=== PATIENT | female | born 1990 | race Caucasian/White ===

== ENCOUNTER 2017-01-23 21:09 | Emergency (ER) | payer MEDICAID ==
[2017-01-23 21:40] LABS: % IMMATURE GRANULYOCYTES 0.1 % (0.0-1.1); ABSOLUTE IMMATURE GRANULOCYTES 0.01 10^3/uL (0.00-0.10); ADD DIFF? NO; ADD MORPH? NO; ADD SCAN? NO; ATYPICAL LYMPHOCYTE FLAG 0 (0-99); FRAGMENT RBC FLAG 0 (0-99); HEMATOCRIT 42.9 % (38.0-47.0); HEMOGLOBIN 14.6 g/dL (12.6-16.3); LEFT SHIFT FLG 0 (0-99); LIPEMIA HEMOLYSIS FLAG 90 (0-99); MEAN CELL HEMOGLOBIN 31.4 pg (27.9-34.1); MEAN CELL VOLUME 92.3 fL (81.5-99.8); MEAN PLATELET VOLUME 9.4 fL (8.7-11.7); PLATELET CLUMPS FLAG 10 (0-99); PLATELET COUNT 335 10^3/uL (150-400); RED BLOOD CELL COUNT 4.65 10^6/uL (4.18-5.33)
[2017-01-23 21:49] LABS: ANION GAP 15 mEq/L (8-16); CALCIUM 9.9 mg/dL (8.5-10.4); CARBON DIOXIDE 18 mEq/l (22-31); CHLORIDE 109 mEq/L (97-110); CREATININE 0.9 mg/dL (0.6-1.0); ETHANOL SERUM 116 mg/dL (0-10); GLOMERULAR FILTRATION RATE > 60; GLUCOSE 84 mg/dL (70-100); POTASSIUM 3.9 mEq/L (3.5-5.2); SODIUM 142 mEq/L (134-144)
--- NOTE | 2017-01-23 21:52 | EDPHY ---
H & P Stated Complaint: SI, took "handfull" of tylenol. Source: Patient Exam Limitations: No limitations - Personal History Current Tetanus/Diphtheria Vaccine: Unsure Current Tetanus Diphtheria and Acellular Pertussis (TDAP): Unsure - Medical/Surgical History Hx Asthma: No Hx Chronic Respiratory Disease: No Hx Diabetes: No Hx Cardiac Disease: No Hx Renal Disease: No Hx Cirrhosis: No Hx Alcoholism: No Hx HIV/AIDS: No Hx Splenectomy or Spleen Trauma: No Other PMH: medical generalized anxiety, bipolar, previous suicidal attempts. surgery none - Social History Smoking Status: Current every day smoker Time Seen by Provider: 01/23/17 21:28 HPI/ROS: CHIEF COMPLAINT: Alcohol intoxication, intentional Tylenol overdose HISTORY OF PRESENT ILLNESS: The patient presents to the ED with alcohol intoxication and a reported intentional Tylenol overdose. The patient took pills because she was despondent secondary to problems with her boyfriend. The patient reports a longstanding history of depression. She does not take medications because she has reacted to them poorly in the past. She denies additional coingestion aside from alcohol. She states that she took the pills approximately 1-2 hours ago. She took them all at once. She denies any nausea , vomiting or additional complaints. REVIEW OF SYSTEMS: A comprehensive 10 point review of systems is otherwise negative aside from elements mentioned in the history of present illness. (Marcos Ruiz) - Physical Exam Exam: General Appearance: Tearful, no acute distress, alcohol on breath Eyes: Pupils equal and round no pallor or injection ENT, Mouth: Mucous membranes moist Respiratory: There are no retractions, lungs are clear to auscultation Cardiovascular: Regular rate and rhythm Gastrointestinal: Abdomen is soft and nontender, no masses, bowel sounds normal Neurological: A&O, normal motor function, normal sensory exam, normal cranial nerves Skin: Warm and dry, no rashes Musculoskeletal: Neck is supple nontender Extremities: symmetrical, full range of motion Psychiatric: Endorses symptoms of depression, does report making suicidal suicidal statements but states that she was not serious about making them. ( Marcos Ruiz) Constitutional: Initial Vital Signs Temperature (C) 37.3 C 01/23/17 21:33 Heart Rate 101 H 01/23/17 21:33 Respiratory Rate 20 01/23/17 21:33 Blood Pressure 135/97 H 01/23/17 21:33 O2 Sat (%) 96 01/23/17 21:33 O2 Delivery Mode Room Air Allergies/Adverse Reactions: No Known Allergies Allergy (Verified 01/23/17 21:39) Home Medications: Medication Instructions Recorded NK [No Known Home Meds] 01/23/17 Medical Decision Making ED Course/Re-evaluation: The patient presents to the ED after a reported suicidal statements, ingestion of unknown amount of Tylenol and alcohol intoxication. Patient's initial Tylenol level is undetectable. This is approximately 2 hours post alleged ingestion. The patient does have a elevated blood alcohol level. Patient is currently on an M1 psychiatric hold. Plan will be for a repeat Tylenol level at 11:00 p.m.. The patient will be evaluated by Psychiatry when sober. The patient denies suicidal thoughts currently but is intoxicated. She does have a prior history of suicidal ideation and suicide attempts. The patient has a longstanding history of depression and is currently not taking medications. The patient will be turned over to Dr. Da Silva at shift change pending psychiatric evaluation. (Marcos Ruiz) 3:20 a.m.- The patient remained stable throughout her time in the emergency room. Repeat Tylenol level was at a therapeutic range. She became more sober and motor was evaluated by mental health worker. She was deemed to be not suicidal. It seems that she is actually doing a bit better at home than previously. The mental health hold was vacated. She will be discharged with her mother. She has information for outpatient resources. (Suzette Da Silva) Differential Diagnosis: Differential diagnosis considered includes alcohol intoxication, intentional overdose, suicidal ideation, psychosis (Marcos Ruiz) - Data Points Laboratory Results: Laboratory Results 01/23/17 21:34 01/23/17 21:34 01/23/17 01/23/17 01/23/17 23:03 21:34 21:34 WBC RBC Hgb Hct MCV MCH MCHC RDW Plt Count MPV Neut % (Auto) Lymph % (Auto) [place] % (Auto) Eos % (Auto) Baso % (Auto) Nucleat RBC Rel Count Absolute Neuts (auto) Absolute Lymphs (auto) Absolute Monos (auto) Absolute Eos (auto) Absolute Basos (auto) Absolute Nucleated RBC Immature Gran % Immature Gran # Sodium 142 mEq/L mEq/L (134-144) Potassium 3.9 mEq/L mEq/L (3.5-5.2) Chloride 109 mEq/L mEq/L (97-110) Carbon Dioxide 18 mEq/l L mEq/l (22-31) Anion Gap 15 mEq/L mEq/L (8-16) BUN 9 mg/dL mg/dL (7-23) Creatinine 0.9 mg/dL mg/dL (0.6-1.0) Estimated GFR > 60 Glucose 84 mg/dL mg/dL (70-100) Calcium 9.9 mg/dL mg/dL (8.5-10.4) Urine Opiates Screen NON-NEGATIVE H (NEGATIVE) Acetaminophen 18 mcg/mL mcg/mL < 10 mcg/mL L mcg/mL (10.0-30.0) (10.0-30.0) Urine Barbiturates NEGATIVE (NEGATIVE) Ur Phencyclidine Scrn NEGATIVE (NEGATIVE) Ur Amphetamine Screen NEGATIVE (NEGATIVE) U Benzodiazepines Scrn NEGATIVE (NEGATIVE) Urine Cocaine Screen NEGATIVE (NEGATIVE) U Marijuana (THC) Screen NON-NEGATIVE H (NEGATIVE) Ethyl Alcohol 116 mg/dL H mg/dL (0-10) 01/23/17 21:34 WBC 8.56 10^3/uL 10^3/uL (3.80-9.50) RBC 4.65 10^6/uL 10^6/uL (4.18-5.33) Hgb 14.6 g/dL g/dL (12.6-16.3) Hct 42.9 % % (38.0-47.0) MCV 92.3 fL fL (81.5-99.8) MCH 31.4 pg pg (27.9-34.1) MCHC 34.0 g/dL g/dL (32.4-36.7) RDW 13.0 % % (11.5-15.2) Plt Count 335 10^3/uL 10^3/uL (150-400) MPV 9.4 fL fL (8.7-11.7) Neut % (Auto) 44.9 % % (39.3-74.2) Lymph % (Auto) 50.1 % H % (15.0-45.0) [place] % (Auto) 3.5 % L % (4.5-13.0) Eos % (Auto) 0.8 % % (0.6-7.6) Baso % (Auto) 0.6 % % (0.3-1.7) Nucleat RBC Rel Count 0.0 % % (0.0-0.2) Absolute Neuts (auto) 3.84 10^3/uL 10^3/uL (1.70-6.50) Absolute Lymphs (auto) 4.29 10^3/uL H 10^3/uL (1.00-3.00) Absolute Monos (auto) 0.30 10^3/uL 10^3/uL (0.30-0.80) Absolute Eos (auto) 0.07 10^3/uL 10^3/uL (0.03-0.40) Absolute Basos (auto) 0.05 10^3/uL 10^3/uL (0.02-0.10) Absolute Nucleated RBC 0.00 10^3/uL 10^3/uL (0-0.01) Immature Gran % 0.1 % % (0.0-1.1) Immature Gran # 0.01 10^3/uL 10^3/uL (0.00-0.10) Sodium Potassium Chloride Carbon Dioxide Anion Gap BUN Creatinine Estimated GFR Glucose Calcium Urine Opiates Screen Acetaminophen Urine Barbiturates Ur Phencyclidine Scrn Ur Amphetamine Screen U Benzodiazepines Scrn Urine Cocaine Screen U Marijuana (THC) Screen Ethyl Alcohol Departure - Departure Disposition: Home, Routine, Self-Care Clinical Impression: Alcohol intoxication, Suicidal ideation, Intentional acetaminophen overdose Condition: Good Instructions: Adult Overdose (ED) Referrals: NONE *PRIMARY CARE P,. [Primary Care Provider] - As per Instructions [facility] [Outside] - As per Instructions
[2017-01-24 03:29] VITALS: BP 122/83; PULSE 63; RESP 18; TEMP 97.9; O2SAT 96
== END 2017-01-24 03:30 | disposition home or self-care (01) ==
LOC: EDUNIT#
DX: F10.129 Alcohol abuse with intoxication, unspecified (principal); F17.200 Nicotine dependence, unspecified, uncomplicated; T39.1X2A Poisoning by 4-Aminophenol derivatives, intentional self-harm, initial encounter; R11.2 Nausea with vomiting, unspecified; Z87.891 Personal history of nicotine dependence
CPT/HCPCS: 80305; 96374; G0480; J2405

== ENCOUNTER 2017-01-24 14:39 | Emergency (ER) | payer MEDICAID ==
[2017-01-24] MEDS ORDERED: ONDANSETRON DISINTEGRATING 4 MG TAB ONE (15:13)
[2017-01-24] MEDS ORDERED: ONDANSETRON DISINTEGRATING 4 MG TAB PO ONE (15:20)
--- NOTE | 2017-01-24 15:28 | EDPHY ---
H & P Time Seen by Provider: 01/24/17 15:25 HPI/ROS: CHIEF COMPLAINT: Nausea, vomiting. HISTORY OF PRESENT ILLNESS: The patient is a 26-year-old female who presents to the ED with nausea and vomiting that began last night. She was seen in the emergency department yesterday after an overdose of Tylenol and alcohol and was sent home with instructions to return for nausea or vomiting. She began to vomit immediately when she returned home. She has been unable to keep any water down since. She admits abdominal pain from the vomiting. No diarrhea, fever, myalgia, or other complaints. REVIEW OF SYSTEMS: A complete 10-point review of systems was performed and is negative except for those items mentioned in the HPI. Past Medical/Surgical History: Depression. Social History: Former smoker. Smoking Status: Former smoker Constitutional: Initial Vital Signs Temperature (C) 36.9 C 01/24/17 14:56 Heart Rate 64 01/24/17 14:56 Respiratory Rate 20 01/24/17 14:56 Blood Pressure 133/90 H 01/24/17 14:56 O2 Sat (%) 97 01/24/17 14:56 O2 Delivery Mode Room Air Allergies/Adverse Reactions: No Known Allergies Allergy (Verified 01/24/17 14:56) Home Medications: Medication Instructions Recorded NK [No Known Home Meds] 01/23/17 Medical Decision Making ED Course/Re-evaluation: 26-year-old female presents with nausea and vomiting since last night. She was seen here yesterday for an intentional Tylenol overdose and co-ingestion of alcohol. She was evaluated and sent home after being medically cleared. She began to vomit when she returned home and has been unable to keep fluids down. She has some associated abdominal pain from vomiting. She denies diarrhea, fever , shortness of breath, or other complaints. An IV was established. We will check blood work including liver enzymes. She will be rehydrated with NS. 4mg IV Zofran administered for nausea. 1619: Lab results: no Tylenol toxicity. Reassessed patient. She is feeling better and is not vomiting. She is tolerating PO Fluids well. Abdomen is soft and non-tender. She is safe for discharge and is comfortable going home. Differential Diagnosis: The differential diagnosis for the patient's nausea and vomiting included but was not limited to gastroenteritis, gastritis, appendicitis, and medication side effect. - Data Points Laboratory Results: Laboratory Results 01/24/17 15:40 01/24/17 15:40 01/24/17 01/24/17 15:40 15:40 WBC 6.43 10^3/uL 10^3/uL (3.80-9.50) RBC 4.38 10^6/uL 10^6/uL (4.18-5.33) Hgb 13.7 g/dL g/dL (12.6-16.3) Hct 40.9 % % (38.0-47.0) MCV 93.4 fL fL (81.5-99.8) MCH 31.3 pg pg (27.9-34.1) MCHC 33.5 g/dL g/dL (32.4-36.7) RDW 13.0 % % (11.5-15.2) Plt Count 344 10^3/uL 10^3/uL (150-400) MPV 9.2 fL fL (8.7-11.7) Neut % (Auto) 60.2 % % (39.3-74.2) Lymph % (Auto) 32.3 % % (15.0-45.0) [place] % (Auto) 5.9 % % (4.5-13.0) Eos % (Auto) 0.6 % % (0.6-7.6) Baso % (Auto) 0.8 % % (0.3-1.7) Nucleat RBC Rel Count 0.0 % % (0.0-0.2) Absolute Neuts (auto) 3.87 10^3/uL 10^3/uL (1.70-6.50) Absolute Lymphs (auto) 2.08 10^3/uL 10^3/uL (1.00-3.00) Absolute Monos (auto) 0.38 10^3/uL 10^3/uL (0.30-0.80) Absolute Eos (auto) 0.04 10^3/uL 10^3/uL (0.03-0.40) Absolute Basos (auto) 0.05 10^3/uL 10^3/uL (0.02-0.10) Absolute Nucleated RBC 0.00 10^3/uL 10^3/uL (0-0.01) Immature Gran % 0.2 % % (0.0-1.1) Immature Gran # 0.01 10^3/uL 10^3/uL (0.00-0.10) Sodium 141 mEq/L mEq/L (134-144) Potassium 4.5 mEq/L mEq/L (3.5-5.2) Chloride 108 mEq/L mEq/L (97-110) Carbon Dioxide 21 mEq/l L mEq/l (22-31) Anion Gap 12 mEq/L mEq/L (8-16) BUN 9 mg/dL mg/dL (7-23) Creatinine 0.8 mg/dL mg/dL (0.6-1.0) Estimated GFR > 60 Glucose 67 mg/dL L mg/dL (70-100) Calcium 9.8 mg/dL mg/dL (8.5-10.4) Total Bilirubin 0.9 mg/dL mg/dL (0.1-1.4) Conjugated Bilirubin 0.3 mg/dL mg/dL (0.0-0.5) Unconjugated Bilirubin 0.6 mg/dL mg/dL (0.0-1.1) AST 21 IU/L IU/L (14-46) ALT 31 IU/L IU/L (9-52) Alkaline Phosphatase 44 IU/L IU/L (38-126) Total Protein 7.0 g/dL g/dL (6.3-8.2) Albumin 4.5 g/dL g/dL (3.5-5.0) Acetaminophen < 10 mcg/mL L mcg/mL (10.0-30.0) Medications Given: Discontinued Medications Sodium Chloride (Ns) 1,000 mls @ 0 mls/hr IV ONCE ONE PRN Reason: Wide Open Stop: 01/24/17 15:32 Last Admin: 01/24/17 15:40 Dose: 1,000 mls Ondansetron HCl (Zofran Odt) 4 mg PO EDNOW ONE Stop: 01/24/17 15:21 Last Admin: 01/24/17 15:20 Dose: 4 mg Ondansetron HCl (Zofran) 4 mg IVP EDNOW ONE Stop: 01/24/17 15:32 Last Admin: 01/24/17 15:50 Dose: 4 mg Departure - Departure Disposition: Home, Routine, Self-Care Clinical Impression: Vomiting Qualifiers: Vomiting type: unspecified Vomiting Intractability: non-intractable Nausea presence: with nausea Qualified Code(s): R11.2 - Nausea with vomiting, unspecified Condition: Good Instructions: Acute Nausea and Vomiting (ED) Additional Instructions: Drink clear fluids only for the next 24 hours. Advance diet as tolerable. Follow up with your PCP for reevaluation. If you need a PCP you were given the telephone number of Dr. Cunningham, outpatient medicine. Return to the emergency department for any serious worsening of condition. Referrals: Claudia Cunningham, [Doctor of Osteopathy] - As per Instructions Report Scribed for: Bess Coleman Report Scribed by: Angelo Napoles Date of Report: 01/24/17 Time of Report: 15:30 Physician Review and Approval Statement: 01/24/17 15:30 Portions of this note were transcribed by a medical office specialist. I personally performed a history, physical exam, medical decision making, and confirmed accuracy of information the transcribed note.
[2017-01-24] MEDS ORDERED: ONDANSETRON 4 MG/2 ML VIAL IVP ONE (15:31)
[2017-01-24] MEDS ORDERED: NS 1,000 ML IV ONE (15:31)
[2017-01-24 15:52] LABS: % IMMATURE GRANULYOCYTES 0.2 % (0.0-1.1); ABSOLUTE IMMATURE GRANULOCYTES 0.01 10^3/uL (0.00-0.10); ADD DIFF? NO; ADD MORPH? NO; ADD SCAN? NO; ATYPICAL LYMPHOCYTE FLAG 10 (0-99); FRAGMENT RBC FLAG 0 (0-99); HEMATOCRIT 40.9 % (38.0-47.0); HEMOGLOBIN 13.7 g/dL (12.6-16.3); LEFT SHIFT FLG 0 (0-99); LIPEMIA HEMOLYSIS FLAG 80 (0-99); MEAN CELL HEMOGLOBIN 31.3 pg (27.9-34.1); MEAN CELL HEMOGLOBIN CONCENTR. 33.5 g/dL (32.4-36.7); MEAN CELL VOLUME 93.4 fL (81.5-99.8); MEAN PLATELET VOLUME 9.2 fL (8.7-11.7); PLATELET CLUMPS FLAG 0 (0-99); PLATELET COUNT 344 10^3/uL (150-400); RED BLOOD CELL COUNT 4.38 10^6/uL (4.18-5.33)
[2017-01-24 16:10] LABS: ALANINE AMINOTRANSFERASE 31 IU/L (9-52); ALBUMIN 4.5 g/dL (3.5-5.0); ALKALINE PHOSPHATASE 44 IU/L (38-126); ANION GAP 12 mEq/L (8-16); ASPARTATE AMINOTRANSFERASE 21 IU/L (14-46); BILIRUBIN,TOTAL 0.9 mg/dL (0.1-1.4); BILIRUBIN-CONJUGATED 0.3 mg/dL (0.0-0.5); BILIRUBIN-UNCONJUGATED 0.6 mg/dL (0.0-1.1); CALCIUM 9.8 mg/dL (8.5-10.4); CARBON DIOXIDE 21 mEq/l (22-31); CHLORIDE 108 mEq/L (97-110); CREATININE 0.8 mg/dL (0.6-1.0); GLOMERULAR FILTRATION RATE > 60; GLUCOSE 67 mg/dL (70-100); POTASSIUM 4.5 mEq/L (3.5-5.2); SODIUM 141 mEq/L (134-144)
[2017-01-24] MEDS ORDERED: ONDANSETRON 4MG PREPACK#2 BTL TAKEHOME ONE (16:36)
[2017-01-24 16:39] VITALS: BP 120/88; PULSE 70; RESP 14; TEMP 97.9; O2SAT 94
== END 2017-01-24 16:38 | disposition home or self-care (01) ==
DX: R11.2 Nausea with vomiting, unspecified (principal); Z87.891 Personal history of nicotine dependence
CPT/HCPCS: 96374; G0480; J2405

== ENCOUNTER 2019-03-24 06:04 | Emergency (ER) | payer MEDICAID | END 2019-03-24 09:15 | disposition home or self-care (01) ==